=== PATIENT | male | born 1965 | race Hispanic/Latino ===

== ENCOUNTER 2022-09-17 09:02 | Outpatient (CLI) | payer OTHER | END 2022-09-17 09:03 | disposition home or self-care (01) | LOC: CSHLAB 09:02 | PROVIDERS: ATTEND Otolaryngology Otolaryngic Allergy | DX: Z01.818 Encounter for other preprocedural examination (principal); G47.33 Obstructive sleep apnea (adult) (pediatric) | CPT/HCPCS: 93005; 93010 ==

== ENCOUNTER 2022-09-22 05:47 | Day surgery (SDC) | payer OTHER ==
[2022-09-18 12:48] VITALS: BMI 27.2
[2022-09-22] MEDS ORDERED: PROPOFOL 20 ML ONE (08:09)
== END 2022-09-22 09:20 | disposition home or self-care (01) ==
LOC: CSHSDC 05:47
PROVIDERS: ATTEND Otolaryngology Otolaryngic Allergy
PROC: 0GJ Endocrine System, Inspection (ICD-10-PCS; principal; 2022-09-22)
DX: G47.33 Obstructive sleep apnea (adult) (pediatric) (principal); Z88.5 Allergy status to narcotic agent; Z79.899 Other long term (current) drug therapy
CPT/HCPCS: J2704

== ENCOUNTER 2024-05-29 08:30 | Outpatient (CLI) | payer OTHER | END 2024-05-29 08:31 | disposition home or self-care (01) | LOC: CSHSLEEP 08:30 | PROVIDERS: ATTEND Internal Medicine Critical Care Medicine | DX: G47.33 Obstructive sleep apnea (adult) (pediatric) (principal); Z96.82 Presence of neurostimulator | CPT/HCPCS: 95810; 95977 ==